=== PATIENT | male | born 1950 | race Caucasian/White ===

== ENCOUNTER 2016-10-28 20:45 | Inpatient (IN) | payer OTHER ==
[~2016-10-28] VITALS: Ht 162.6 cm; Wt 84.1 kg
--- NOTE | ~2016-10-28 | O ---
[facility] [place] [address] [address] OPERATIVE REPORT Name: SKIP PLUMMER Room #: 213-P ADM IN M.R.#: [id number] Admission: 10/28/16 Attend Phys: Robin Gallegos MD Discharge: Date of : 46 Report #: [id number] THIS REPORT FOR: //name// CC: Susana Su Robin Gallegos DATE OF SERVICE: 11/01/2016 PREOPERATIVE DIAGNOSIS: Coronary artery disease. POSTOPERATIVE DIAGNOSIS: Coronary artery disease. OPERATION: Coronary artery bypass x 4 including left internal mammary artery to left anterior descending artery, saphenous vein to diagonal and marginal arteries and saphenous vein to distal right coronary artery and endoscopic harvest, left greater saphenous vein. SURGEON: Jeffy Aviles MD. COMMUNICATIONS EQUIPMENT INSTALLER: Josefina Huynh. ANESTHESIA: General. INDICATIONS: The patient is a 66-year-old seen for Dr. El. The patient has unstable angina. Catheterization demonstrates a total occlusion of the right coronary and LAD and high-grade circumflex disease. Left ventricular function is satisfactory. FINDINGS AND TECHNIQUE: After general anesthesia was established, saphenous vein was harvested using an endoscopic approach and prepared to use as a conduit. Exposure was obtained through median sternotomy. Left internal mammary artery was harvested from chest wall. Pericardial well was made. Cannulation sutures were placed. Heparin was given. Aorta was cannulated. Right atrium was cannulated. Cardioplegia needle was positioned in the aortic root. Retrograde cardioplegic catheter was placed in coronary sinus. Cardiopulmonary bypass was established. The aorta was cross clamped. Antegrade and retrograde cardioplegia were given. Ice was poured in the pericardial well. The heart was stopped. During electromechanical arrest, the distal anastomoses were performed. An end-to-side anastomosis was made between vein and the right coronary artery at the crux. The right coronary itself was highly calcified, and the vessel at the point of anastomosis was approximately 1.3 mm. Cold cardioplegia was given. A separate segment of vein was sewn in end-to-side fashion to the large marginal. [facility] [address] [place] [address] OPERATIVE REPORT Name: SKIP PLUMMER Room #: 213-P [facility] IN M.R.#: [id number] Admission: 10/28/16 Attend Phys: Robin Gallegos MD Discharge: Date of : 46 Report #: [id number] This was a 1.6 mm vessel. That was more distal marginal, but I thought it was too small for bypass. Cold cardioplegia was given. Same segment of vein was sewn in [id number] fashion to the diagonal artery. This was a 1.3 mm vessel and was itself highly calcified. Cold cardioplegia was given. Left internal mammary artery was sewn in end-to-side fashion to left anterior descending artery. Patency of this vessel was checked with the temperature technique. The LAD was a 1.6 mm vessel. Cold cardioplegia was given. Two proximal anastomoses were performed. When these were complete, warm retrograde cardioplegia was given followed by warm continuous blood to the coronary sinus. When this infusion was complete, the crossclamp was removed, de-airing maneuvers were performed. The anastomoses were inspected and found to be satisfactory. As the patient warmed, nice cardiac activity resumed, chest tubes and pacing wires were placed. A marker was placed around the proximal anastomoses. When the patient was warmed, he was weaned from cardiopulmonary bypass. Venous cannula was removed. Protamine was given, the aortic cannula was removed. Flows were measured in the bypass grafts. Flow in the graft to the right side was 35 mL per minute. Flow in the graft to the left side was 90 mL per minute. A good Doppler signal was audible in the internal mammary artery. Total cross clamp time was 95 minutes, total pump time was 116 minutes. When hemostasis was satisfactory, chest was irrigated with antibiotic solution and closed in the usual fashion. The patient was taken to the intensive care unit in good condition having tolerated the procedure well. All counts reported as correct. By: 1945 16 Jeffy Aviles MD /nt
--- NOTE | ~2016-10-28 | HC ---
[facility] [address] [place] [address] CONSULTATION Name: SKIP PLUMMER Room #: 213-P ADM IN M.R.#: [id number] Admission: 10/28/16 Attend Phys: Robin Gallegos MD Discharge: Date of : 46 Report #: [id number] THIS REPORT FOR: //name// CC: Susana Sharlene Robin Gallegos DATE OF SERVICE: 10/29/2016 PATIENT IDENTIFICATION: This 66-year-old male has his first [facility] hospitalization. He usually receives his care at the [facility]. HISTORY OF PRESENT ILLNESS: The patient was in his usual state of good health when he developed the acute onset of chest discomfort radiating to his left arm. This was unusual and he had never experienced this kind of pain before. He does have chronic pains related primarily to rotator cuff injuries. He had no associated shortness of breath or diaphoresis. EMS was called and he received nitroglycerin with improvement in his discomfort. He was brought to the Emergency Room for further evaluation and treatment. The patient has no known history of myocardial infarction or coronary artery disease. MEDICATIONS ON ADMISSION: Include acetaminophen, guaifenesin, docusate, Cymbalta, fish oil, lisinopril 40 mg daily, Remeron 30 mg daily, Lyrica 200 mg b.i.d., Imitrex 25 mg p.r.n. migraine, tamsulosin 0.4 mg daily, albuterol, allopurinol, amlodipine 2.5 mg daily, vitamin C, baclofen, capsaicin, Zyrtec, Colcrys, Voltaren gel cream. PAST MEDICAL HISTORY: Otherwise remarkable for longstanding hypertension. He has known chronic mood disorder. ALLERGIES: He has reported allergies to AMOXICILLIN, ATORVASTATIN, CIPROFLOXACIN, PRAVASTATIN, ROSUVASTATIN, and SULFA. PERSONAL AND SOCIAL HISTORY: The patient does not smoke tobacco, but uses marijuana on a regular basis. He uses alcohol as well. FAMILY HISTORY: Negative for renal disease. REVIEW OF SYSTEMS: Remarkable for the absence of pedal edema. He denies skin rash. He denies headache, epistaxis, nausea, vomiting, diarrhea or constipation. PHYSICAL EXAMINATION: GENERAL: Reveals a well-developed, well-nourished male appearing his stated age, in no acute distress. VITAL SIGNS: Blood pressure 143/72, temperature 98.1, pulse 71, respirations 20. [address] [address] CONSULTATION Name: SKIP PLUMMER Room #: 213-P [facility] IN [facility].#: [id number] Admission: 10/28/16 Attend Phys: Robin Gallegos MD Discharge: Date of : 46 Report #: [id number] SKIN: Warm and dry without rash or erythema. There is no gross clubbing, cyanosis, edema or adenopathy. HEENT: The head is normocephalic and atraumatic. The sclerae are white. The pharynx is benign. NECK: Supple. There is no JVD present. LUNGS: Reveals scattered rhonchi without wheezes or crackles heard. CARDIOVASCULAR: Reveals a regular rate and rhythm without rub. ABDOMEN: Soft and nontender, without palpable mass or organomegaly. NEUROLOGIC: Reveals the patient to be alert and cooperative with a nonfocal exam. LABORATORY STUDIES: Available at the time of consultation include sodium 142, potassium 4.6, chloride 107, CO2 26, BUN 25, creatinine 1.8, glucose 99, calcium 8.5. White blood cell count 7600, hemoglobin 11.1, hematocrit 31.4, platelet count 174,000. There is no urinalysis available at the time of this dictation. ASSESSMENT: 1. Chronic kidney disease in the setting of diffuse atherosclerosis. 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 He is on appropriate manage with an NIRAV inhibitor. At this time, we will discontinue his NIRAV inhibitor in anticipation of cardiac catheterization to further evaluate his complaints of chest pain and elevated troponin. 2. Gentle hydration with bicarbonate containing IV fluids. 3. Longstanding hypertension. 4. Ongoing marijuana abuse. PLAN: As described above. Please see orders. <ELECTRONICALLY SIGNED> By: Gómez Wolfe MD 11/05/16 1001 0600 0743 Gómez Wolfe MD /nt
--- NOTE | ~2016-10-28 | EKG ---
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
--- NOTE | ~2016-10-28 | 2DMMODE ---
[facility] [address] [place] [address] 2 D/M-MODE ECHOCARDIOGRAM Name: KAVITHASKIP Room #: 217-P ADM IN M.R.#: [id number] Admission: 10/28/16 Attend Phys: Ania Waller Discharge: Date of : 46 Date of Service: 10/30/16 1004 Report #: [id number] THIS REPORT FOR: //name// APPROVED REPORT Study performed: 10/30/2016 07:21:10 EXAM: Comprehensive 2D, Doppler, and color-flow Echocardiogram Patient Location: Bedside Room #: 217 Blood Pressure: 124/61 mmHg HR: 60 bpm Rhythm: NSR Other Information Study Quality: FairAdequate Indications NSTEMI, Pre-Op CABG. Hx: HTN 2D Dimensions RVDd: 32.52 mm LVEF(%): 71.47 (>50%) IVSd: 10.28 (7-11mm) LVOT Diam: 22.20 (18-24mm) LVDd: 46.91 mm PWd: 10.05 (7-11mm) Ascending Ao: 34.60 (22-36mm) LVDs: 27.82 (25-40mm) Aortic Root: 34.94 mm Leach's LVEF: 71.47 % Volumes Left Atrial Volume (Systole) Single Plane 4CH: 44.43 mL Single Plane 2CH: 51.06 mL LA ESV Index: 27.00 mL/m2 Aortic Valve AoV Peak Tony.: 1.67 m/s AO Peak Gr.: 11.12 mmHg LVOT Max P.36 mmHg LVOT Max V: 1.26 m/s Mitral Valve E/A Ratio: 0.8 MV Decel. Time: 300.25 ms [facility] [address] [place] [address] 2 D/M-MODE ECHOCARDIOGRAM Name: PLUMMERSKIP Room #: 217-P [facility] IN [facility].#: [id number] Admission: 10/28/16 Attend Phys: Ania Waller Discharge: Date of : 46 Date of Service: 10/30/16 1004 Report #: [id number] MV E Max Tony.: 0.83 m/s MV A Tony.: 1.09 m/s MV PHT: 87.07 ms Pulmonary Valve PV Peak Tony.: 1.05 m/s PV Peak Gr.: 4.43 mmHg Pulmonary Vein P Vein S: 73.3 m/s P Vein D: 64.4 m/s Tricuspid Valve TR Peak Tony.: 2.29 m/s RAP Estimate: 5.00 mmHg TR Peak Gr.: 20.94 mmHg RVSP: 26.00 mmHg Left Ventricle The left ventricle is normal size. There is normal LV segmental wall motion. There is normal left ventricular wall thickness. Left ventricular systolic function is normal. LVEF is 60%. Grade I - abnormal relaxation pattern. Right Ventricle The right ventricle is normal size. The right ventricular systolic function is normal. Atria The left atrium size is normal. The right atrium size is normal. Aortic Valve The Aortic valve is moderately sclerotic. No aortic regurgitation is present. There is no aortic valvular stenosis. Mitral Valve Mitral valve leaflets are mildly thickened. Mild mitral annular calcification. Mild mitral regurgitation. Tricuspid Valve The tricuspid valve is normal in structure. There is trace tricuspid regurgitation. The right atrial pressure is estimated at 5 mmHg. Estimated PAP is 26mmHg. Pulmonic Valve The pulmonary valve is normal in structure. Mild pulmonic regurgitation. [facility] [address] [place] [address] 2 D/M-MODE ECHOCARDIOGRAM Name: SKIP PLUMMER Room #: 217-P [facility] IN ..#: [id number] Admission: 10/28/16 Attend Phys: Ania Waller Discharge: Date of : 46 Date of Service: 10/30/16 1004 Report #: [id number] Great Vessels The aortic root is normal in size. The ascending aorta is normal in size. IVC is normal in size and collapses >50% with inspiration. Pericardium There is no pericardial effusion. <Conclusion> The left ventricle is normal size. LVEF is 60%. The Aortic valve is moderately sclerotic. Mitral valve leaflets are mildly thickened. Mild mitral annular calcification. Mild mitral regurgitation. The tricuspid valve is normal in structure. There is trace tricuspid regurgitation. The right atrial pressure is estimated at 5 mmHg. Estimated PAP is 26mmHg. Mild pulmonic regurgitation. <ELECTRONICALLY SIGNED> By: Codey Juarez MD 10/30/16 1004 1004 1004 Codey Juarez MD /INF
--- NOTE | ~2016-10-28 | HC ---
[facility] [address] [address] CONSULTATION Name: SKIP PLUMMER Room #: 247-P [facility] IN M.R.#: [id number] Admission: 10/28/16 Attend Phys: Robin Gallegos MD Discharge: Date of : 46 Report #: [id number] THIS REPORT FOR: //name// CC: Susana Su Robin Gallegos DATE OF SERVICE: 10/29/2016 We were asked to see the patient by Dr. El. HISTORY OF PRESENT ILLNESS: The patient is a 66-year-old with coronary artery disease. The patient was admitted with acute onset of chest pain on the . The patient has a history of occasional chest pain prior to that, but the pain that brought him in to the hospital was significantly different. The patient reports he has chronic left shoulder pain with rotated cuff problem, but now describes a new type of shoulder pain in addition to having the mid sternal chest discomfort that he rates a 2/10. No other radiation. Some shortness of breath associated with it. No diaphoresis. No nausea or vomiting. Pain seemed to get better after coming to the hospital and receiving treatment. PAST MEDICAL HISTORY: Past history significant for hypertension. The patient denies diabetes mellitus. He is typically treated at the [facility]. MEDICATIONS: At home, acetaminophen, guaifenesin, docusate, Cymbalta, fish oil, Zestril, Remeron, Lyrica, Imitrex for migraines, tamsulosin, albuterol, allopurinol, amlodipine, baclofen, vitamin C and capsaicin for neuropathy. ALLERGIES: AMOXICILLIN, ATORVASTATIN, CIPROFLOXACIN, POLLEN, PRAVASTATIN, ROSUVASTATIN and SULFA. SOCIAL HISTORY: The patient lives at home with his son. The patient is on full disability. Denies tobacco use. Does use marijuana. Denies problems with Hep C or HIV. REVIEW OF SYSTEMS: CONSTITUTIONAL: Negative for fever or chills. EYES: Negative for eye pain or visual change. Wears glasses. HENT: Negative for rhinorrhea or sore throat. RESPIRATORY: Negative for cough or shortness of breath. CARDIAC: As mentioned, chest pain. No palpitations. GASTROINTESTINAL: No nausea, vomiting or diarrhea. Does have large incisional hernia, but no obstructive symptoms. GENITOURINARY: No burning, urgency or frequency. MUSCULOSKELETAL: Left shoulder pain, scheduled for rotator cuff surgery. SKIN: No rash or infection. NEUROLOGIC: No numbness or tingling. Does have neuropathy in [facility] [address] [place] [address] CONSULTATION Name: SKIP PLUMMER Room #: 247-P [facility]#: [id number] Admission: 10/28/16 Attend Phys: Robin Gallegos MD Discharge: Date of : 46 Report #: [id number] extremities. PHYSICAL EXAMINATION: VITAL SIGNS: Temperature 36.7, heart rate 58, respiratory rate 16, blood pressure 133/64 and pulse ox 96. HEENT: No scleral icterus. Pupils are round and equal. Gaze conjugate. NECK: No lymphadenopathy, no bruit. CHEST: Clear. HEART: Rhythm regular. ABDOMEN: We note large incisional hernia in the upper abdomen. No mass, no tenderness. SKIN: No rash or infection. EXTREMITIES: No clubbing, cyanosis or edema; 2+ distal pulses. NEUROLOGIC: No motor or sensory dysfunction. MUSCULOSKELETAL: No bone or joint dyssymmetry or deformity. PSYCHIATRIC: Shows insight into problems. He is a pleasant fellow, oriented and appropriate. ASSESSMENT: The patient has important 3-vessel coronary disease. Cardiac catheterization demonstrated total occlusion of the left anterior descending, total occlusion of the right with collateral filling from [id number] of the left anterior descending and from [id number] of the distal right system. There is also high-grade circumflex disease. Left ventricular function not significantly impaired. I reviewed the cardiac catheterization with the patient. I have recommended coronary artery bypass surgery because of the nature of and severity of the blockages. Risks and details were discussed. The patient understands all of this and he wishes to proceed. We will try to arrange surgery for . Thank you for the consult. <ELECTRONICALLY SIGNED> By: Jeffy Aviles MD 11/02/16 1117 0905 1111 Jeffy Aviles MD /nt
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
--- NOTE | ~2016-10-28 | CATHLAB ---
[facility] [address] [place] [address] INVASIVE PROCEDURE REPORT Name: SKIP PLUMMER Tr Room #: 217-P ADM IN M.R.#: [id number] Admission: 10/28/16 Attend Phys: Ania Waller Discharge: Date of : 46 Date of Service: 10/29/16 1456 Report #: [id number] THIS REPORT FOR: //name// CC: Susana Sharlene Robin Gallegos PROCEDURE: Left heart coronary angiography. INDICATIONS: Non-Q-wave myocardial infarction. DESCRIPTION OF PROCEDURE: The potential benefits and risks of the procedure were discussed at length with the patient who understood. Full written and informed consent was obtained. The patient was brought into the catheterization suite where his right groin was prepped and draped in a sterile fashion. He was sedated with intravenous Versed. A 1% Xylocaine was used as local anesthetic. A 6-Armenian sheath was placed in the right femoral artery by the modified Seldinger technique. Left heart catheterization was performed with a 6-Armenian angled pigtail catheter. A single plain ventriculogram was performed in the MCKEON view. Pullback gradients were measured across the aortic valve. Selective coronary angiography was performed with a 6-Armenian left and right 4 cm John coronary catheter. All diagnostic catheters removed. Hand injection was performed through the right groin sheath with placement of a Mynx device. Upon removal of the sheath, the patient remained in excellent condition at the conclusion of the procedure with good right groin hemostasis and intact distal pulses. RESULTS: LEFT HEART HEMODYNAMICS: 1. Left ventricular systolic pressure of 140. 2. Left ventricular end diastolic pressure of 12. 3. Aortic valve, no gradient was present on pullback across the aortic valve, central aortic pressure of 140/70. ANGIOGRAPHY: Left ventriculogram: Ventriculography demonstrated normal global and regional left ventricular systolic function. The proximal coronary vasculature was densely calcified before any injection of these vessels. SELECTIVE CORONARY ANGIOGRAPHY: 1. Left main: Left main exhibited a 60% densely calcified distal stenosis. 2. Left anterior descending: Left anterior descending was occluded proximally. There was a tubular 60-70% proximal LAD stenosis before its occlusion. 3. Circumflex: The circumflex exhibited a 99% ostial stenosis. The midcircumflex was occluded and a distally arising marginal branch filled by left to left collaterals. There were fairly extensive right to left collaterals filling most of the LAD, which appeared to be a decent sized vessel. 4. Right coronary artery: The right coronary artery was occluded proximally. [facility] [address] [place] [address] INVASIVE PROCEDURE REPORT Name: SKIP PLUMMER Room #: 217-P [facility] IN ..#: [id number] Admission: 10/28/16 Attend Phys: Ania Waller Discharge: Date of : 46 Date of Service: 10/29/16 1456 Report #: [id number] There were faint bridging collaterals to a thready distal right coronary. There were extensive collaterals via acute marginal branches to the LAD which was a large vessel that wrapped around the inferior apex. SUMMARY: 1. Normal global and regional left ventricular systolic function. Ejection fraction was estimated at 60%. 2. Very severe multivessel coronary disease as detailed above. Surgical revascularization is recommended. By: 1456 0644 Cody El MD, FACC /nt
--- NOTE | ~2016-10-28 | EKG ---
[place] [address] [facility] [place] [address] ELECTROCARDIOGRAM REPORT Name: SKIP PLUMMER Room #: 213-[facility] IN M.R.#: [id number] Admission: 10/28/16 Attend Phys: Robin Gallegos MD Discharge: 11/05/16 Date of : 48 Report #: [id number] THIS REPORT FOR: //name// [facility] Test Date: 2016-11-05 Test Time: 12:42:48 Pat Name: SKIP PLUMMER Department: Room: 213 P Gender: M Machine Sign Writer: Ramez HASTINGS : 1950 Requested By: Jeffy Aviles Order Number: [id number] MD: Cody El Measurements Intervals [place] Rate: 65 P: 47 GA: 148 QRS: -15 QRSD: 130 T: -1 QT: 421 QTc: 438 Interpretive Statements Sinus rhythm Right bundle branch block Compared to ECG 11/02/2016 07:15:01 No significant change was found Electronically Signed On 11-06-2016 7:54:46 CDT by Cody El [email or web address] <ELECTRONICALLY SIGNED> By: Cody El MD, [facility] 11/06/16 0754 1242 124 Cody El MD, [facility] /EPI
--- NOTE | ~2016-10-28 | EKG ---
[place] [address] [facility] [place] [address] ELECTROCARDIOGRAM REPORT Name: SKIP PLUMMER Room #: 247-P ADM IN M.R.#: [id number] Admission: 10/28/16 Attend Phys: Robin Gallegos MD Discharge: Date of : 48 Report #: [id number] THIS REPORT FOR: //name// [facility] Test Date: 2016-11-02 Test Time: 07:15:01 Pat Name: SKIP PLUMMER Department: Room: 247 P Gender: M Printing Sales Representative: wilma : 1950 Requested By: Jeffy Aviles Order Number: [id number] MD: Cody El Measurements Intervals [place] Rate: 74 P: 33 MA: 149 QRS: 5 QRSD: 138 T: -14 QT: 388 QTc: 431 Interpretive Statements Sinus rhythm Right bundle branch block Baseline wander in lead(s) V4 Compared to ECG 10/29/2016 17:35:04 right bundle branch block is now present Electronically Signed On 11-03-2016 12:45:16 CDT by Cody El [email or web address] <ELECTRONICALLY SIGNED> By: Cody El MD, [facility] 11/03/16 1245 4 Cody lE MD, [facility] /EPI
--- NOTE | ~2016-10-28 | EKG ---
[place] [address] [facility] [place] [address] ELECTROCARDIOGRAM REPORT Name: SKIP PLUMMER Room #: 217-P ADM IN M.R.#: [id number] Admission: 10/28/16 Attend Phys: Robin Gallegos MD Discharge: Date of : 48 Report #: [id number] THIS REPORT FOR: //name// [facility] Test Date: 2016-10-29 Test Time: 00:07:10 Pat Name: SKIP PLUMMER Department: Room: 217 P Gender: M Visual Merchandising Director: yazmin : 1950 Requested By: Yady Moffett Order Number: [id number] MD: Cody El Measurements Intervals [place] Rate: 64 P: 20 AK: 155 QRS: -8 QRSD: 80 T: -3 QT: 365 QTc: 377 Interpretive Statements Sinus rhythm Borderline T abnormalities, inferior leads Baseline wander in lead(s) V4 No previous ECG available for comparison Electronically Signed On 10-29-2016 9:04:23 CDT by Cody El [email or web address] <ELECTRONICALLY SIGNED> By: Cody El MD, [facility] 10/29/16 0904 Cody El MD, FACC /EPI
--- NOTE | ~2016-10-28 | EKG ---
[place] [address] [facility] [place] [address] ELECTROCARDIOGRAM REPORT Name: SKIP PLUMMER Room #: 217-P ADM IN M.R.#: [id number] Admission: 10/28/16 Attend Phys: Robin Gallegos MD Discharge: Date of : 48 Report #: [id number] THIS REPORT FOR: //name// [facility] Test Date: 2016-10-29 Test Time: 17:35:04 Pat Name: SKIP PLUMMER Department: Room: 217 P Gender: M Unix Developer: Ania CURRIE : 1950 Requested By: Jeffy Aviles Order Number: [id number] MD: Cody El Measurements Intervals [place] Rate: 56 P: 33 CT: 165 QRS: 0 QRSD: 82 T: -2 QT: 392 QTc: 379 Interpretive Statements Sinus bradycardia Borderline T abnormalities, inferior leads Compared to ECG 10/29/2016 00:07:10 No significant changes Electronically Signed On 10-30-2016 8:35:31 CDT by Cody El [email or web address] <ELECTRONICALLY SIGNED> By: Cody El MD, [facility] 10/30/16 0835 1735 173 Cody El MD, [facility] /EPI
[2016-10-28 20:45] VITALS: BP 120/68
[2016-10-28 21:06] LABS: ABSOLUTE NEUTROPHILS 4.8 thou/uL (1.4-8.2); BASOPHILS 0.4 % (0.0-2.0); EOSINOPHILS 8.4 % (0.0-3.0); HEMATOCRIT 31.4 % (42.0-52.0); HEMOGLOBIN 11.1 gm/dL (14.0-18.0); LYMPHOCYTES 20.7 % (24.0-44.0); MCH 33.4 pg (26.0-34.0); MCHC 35.3 g/dL (28.0-37.0); MCV 94.5 fL (80.0-100.0); MONOCYTES 6.9 % (1.0-8.0); PLATELET COUNT 174 thou/uL (150-400); POLYS 63.6 % (36.0-66.0); RBC 3.32 mil/uL (4.50-6.00); RDW 14.4 % (10.5-14.5); WBC 7.6 thou/uL (4.0-11.0)
[2016-10-28 21:07] LABS: MANUAL DIFF NO
[2016-10-28] MEDS ORDERED: TYLENOL325 MG PO (21:08)
[2016-10-28] MEDS ORDERED: PROAIR RESPICL90 MCG INH (21:10)
[2016-10-28] MEDS ORDERED: ALLOPURINOL 30300 M2 PO (21:10)
[2016-10-28] MEDS ORDERED: VITAMINC500 PO (21:11)
[2016-10-28] MEDS ORDERED: NORVASC 2.5 MG2.5 M1 PO (21:11)
[2016-10-28] MEDS ORDERED: LIORESAL 10 MG10 MG PO (21:12)
[2016-10-28] MEDS ORDERED: CAPSAICIN42.5 GM (21:15)
[2016-10-28] MEDS ORDERED: CETIRIZINE HCL5 MG PO (21:15)
[2016-10-28] MEDS ORDERED: VOLTAREN GEL 1100 G2 (21:16)
[2016-10-28] MEDS ORDERED: COLCHICINE0.6 MG PO (21:16)
[2016-10-28 21:30] LABS: TROPONIN-I 0.1 ng/mL (<0.04-0.07)
[2016-10-28 21:34] LABS: CREATININE 2.1 mg/dL (0.7-1.3); POTASSIUM 4.5 mmol/L (3.5-5.1)
[2016-10-28 21:46] LABS: ALBUMIN 1.9 g/dL (3.4-5.0); CALCIUM 8.5 mg/dL (8.5-10.1); TOTAL BILIRUBIN 0.2 mg/dL (<0.1-1.0); TOTAL PROTEIN 6.2 g/dL (6.4-8.2)
[2016-10-28 22:22] VITALS: BP 107/58
[2016-10-28 23:07] VITALS: BP 119/61
[2016-10-28] MEDS ORDERED: COUGH SYRU100 MG/5 M PO (23:28)
[2016-10-28] MEDS ORDERED: COL-RITE50 MG PO (23:31)
[2016-10-28] MEDS ORDERED: CYMBALTA30 MG PO (23:34)
[2016-10-28] MEDS ORDERED: FISH OIL 1,001000 M2 PO (23:35)
[2016-10-28] MEDS ORDERED: BASLE60 GM TOP (23:37)
[2016-10-28] MEDS ORDERED: ZESTRIL40 MG PO (23:38)
[2016-10-28] MEDS ORDERED: REMERON 30 MG T30 M1 PO (23:40)
[2016-10-28] MEDS ORDERED: LYRICA200 MG PO (23:41)
[2016-10-28] MEDS ORDERED: IMITREX 25 MG T25 MG PO (23:42)
[2016-10-28] MEDS ORDERED: TAMSULOSIN HCL0.4 MG PO (23:43)
[2016-10-28] MEDS ORDERED: BENADRYL25 MG PO (23:44)
[2016-10-28] MEDS ORDERED: DECONGESTANT NA15 ML NASAL (23:46)
[2016-10-29 03:15] LABS: CHOLESTEROL 236 mg/dL (<200); HDL CHOLESTEROL 28 mg/dL (>40); LDL CHOLESTEROL 143 mg/dL (<100); SERUM ASSESSMENT Clear; TC:HDL 8.4 Ratio (Not establshd); TRIGLYCERIDE 326 mg/dL (<150); VLDL 65 mg/dL (<40)
[2016-10-29 03:18] LABS: CALCIUM 8.5 mg/dL (8.5-10.1); CREATININE 1.8 mg/dL (0.7-1.3); POTASSIUM 4.6 mmol/L (3.5-5.1); TROPONIN-I 0.35 ng/mL (<0.04-0.07)
[2016-10-29 05:14] VITALS: BP 126/67
[2016-10-29 07:16] VITALS: BP 139/71
[2016-10-29 11:04] VITALS: BP 143/72
[2016-10-29 18:16] LABS: APTT 28.5 Seconds (24.5-32.8); PROTIME 10.4 Seconds (9.3-11.4)
[2016-10-29 20:15] VITALS: BP 114/62
[2016-10-30 00:35] VITALS: BP 113/52
[2016-10-30 03:07] LABS: GLYCOHEMOGLOBIN (HGB A1C) 4.9 % (4.8-5.6)
[2016-10-30 03:16] LABS: HEMATOCRIT 30.5 % (42.0-52.0); HEMOGLOBIN 10.3 gm/dL (14.0-18.0); MCH 32.2 pg (26.0-34.0); MCHC 33.7 g/dL (28.0-37.0); MCV 95.6 fL (80.0-100.0); RBC 3.19 mil/uL (4.50-6.00); RDW 14.5 % (10.5-14.5); WBC 7.9 thou/uL (4.0-11.0)
[2016-10-30 03:29] LABS: URINE BILIRUBIN NEGATIVE (Negative); URINE BLOOD NEGATIVE (Negative); URINE COLOR YELLOW; URINE GLUCOSE-RANDOM* NEGATIVE (Negative); URINE KETONES NEGATIVE (Negative); URINE LEUKOCYTES-REFLEX NEGATIVE (Negative); URINE PROTEIN (DIPSTICK) NEGATIVE (Negative); URINE SPECIFIC GRAVITY <= 1.005 (1.003-1.035); URINE UROBILINOGEN 0.2 E.U./dl (0.2-1.0)
[2016-10-30 03:30] LABS: ALBUMIN 2.9 g/dL (3.4-5.0); CALCIUM 8.1 mg/dL (8.5-10.1); CREATININE 1.5 mg/dL (0.7-1.3); MAGNESIUM 1.1 mg/dL (1.8-2.4); PHOSPHORUS 3.3 mg/dL (2.5-4.9)
[2016-10-30 04:12] VITALS: BP 124/61
[2016-10-30 07:20] VITALS: BP 133/64
[2016-10-30 11:05] LABS: URINE CREATININE-RANDOM* 54.4 mg/dL (Not Estab.)
[2016-10-30 11:15] VITALS: BP 121/64
[2016-10-30 13:58] LABS: URINE PROTEIN-RANDOM* 4.7 mg/dL (Not Estab.)
[2016-10-30 16:30] VITALS: BP 107/55
[2016-10-30 20:10] VITALS: BP 142/84
[2016-10-31 04:02] LABS: ALBUMIN 3.1 g/dL (3.4-5.0); CREATININE 1.3 mg/dL (0.7-1.3); MAGNESIUM 1.8 mg/dL (1.8-2.4); PHOSPHORUS 4.3 mg/dL (2.5-4.9)
[2016-10-31 04:18] VITALS: BP 150/82
[2016-10-31 07:50] VITALS: BP 135/74
[2016-10-31 11:55] VITALS: BP 123/61
[2016-10-31 15:10] VITALS: BP 112/54
[2016-10-31 19:39] VITALS: BP 115/58
[2016-11-01] VITALS (12 sets, daily range): BP systolic 90–181; BP diastolic 57–91
[2016-11-01 04:00] LABS: ALBUMIN 3.3 g/dL (3.4-5.0); CALCIUM 8.3 mg/dL (8.5-10.1); CREATININE 1.4 mg/dL (0.7-1.3); PHOSPHORUS 3.8 mg/dL (2.5-4.9); POTASSIUM 4.2 mmol/L (3.5-5.1)
[2016-11-01 08:08] LABS: KAPPA FREE LIGHT CHAINS 18.44 mg/L (3.30-19.40); LAMBDA FREE LIGHT CHAINS 15.35 mg/L (5.71-26.30)
[2016-11-01 14:26] LABS: POC BE -2 mmol/L (-2.0 to +3.0); POC CA IONIZED 4.2 mg/dL (4.5-5.3); POC FiO2 100 %; POC GLUCOSE 131 mg/dL (70-99); POC HCO3 23.9 mmol/L (22.0-26.0); POC HEMOGLOBIN 8.5 g/dL (14.0-18.0); POC SODIUM 137 mmol/L (136-145); POC pCO2 43.1 mmHg (35.0-45.0); POC pH 7.352 (7.360-7.450)
[2016-11-01 14:26] LABS: POC BE 2 mmol/L (-2.0 to +3.0); POC CA IONIZED 4.6 mg/dL (4.5-5.3); POC FiO2 100 %; POC GLUCOSE 120 mg/dL (70-99); POC HEMOGLOBIN 9.5 g/dL (14.0-18.0); POC POTASSIUM 4.2 mmol/L (3.5-5.1); POC SODIUM 139 mmol/L (136-145); POC pCO2 44.5 mmHg (35.0-45.0); POC pH 7.392 (7.360-7.450)
[2016-11-01 14:26] LABS: POC BE 3 mmol/L (-2.0 to +3.0); POC CA IONIZED 4.1 mg/dL (4.5-5.3); POC FiO2 100 %; POC GLUCOSE 137 mg/dL (70-99); POC HCO3 27.5 mmol/L (22.0-26.0); POC HEMOGLOBIN 7.8 g/dL (14.0-18.0); POC POTASSIUM 4.1 mmol/L (3.5-5.1); POC SODIUM 136 mmol/L (136-145); POC pCO2 44.6 mmHg (35.0-45.0); POC pH 7.397 (7.360-7.450)
[2016-11-01 14:26] LABS: POC BE 4 mmol/L (-2.0 to +3.0); POC CA IONIZED 4.6 mg/dL (4.5-5.3); POC FiO2 100 %; POC GLUCOSE 89 mg/dL (70-99); POC HCO3 28.1 mmol/L (22.0-26.0); POC HEMOGLOBIN 9.9 g/dL (14.0-18.0); POC POTASSIUM 4.3 mmol/L (3.5-5.1); POC SODIUM 140 mmol/L (136-145); POC pH 7.444 (7.360-7.450)
[2016-11-01 14:27] LABS: POC BE -3 mmol/L (-2.0 to +3.0); POC CA IONIZED 5.2 mg/dL (4.5-5.3); POC FiO2 100 %; POC GLUCOSE 161 mg/dL (70-99); POC HEMOGLOBIN 6.8 g/dL (14.0-18.0); POC POTASSIUM 4.2 mmol/L (3.5-5.1); POC SODIUM 134 mmol/L (136-145); POC pCO2 41.8 mmHg (35.0-45.0); POC pH 7.349 (7.360-7.450)
[2016-11-01 14:27] LABS: POC BE 1 mmol/L (-2.0 to +3.0); POC CA IONIZED 4.2 mg/dL (4.5-5.3); POC FiO2 100 %; POC GLUCOSE 149 mg/dL (70-99); POC HEMOGLOBIN 6.8 g/dL (14.0-18.0); POC POTASSIUM 4.4 mmol/L (3.5-5.1); POC SODIUM 135 mmol/L (136-145); POC pCO2 45.5 mmHg (35.0-45.0); POC pH 7.366 (7.360-7.450)
[2016-11-01 14:27] LABS: POC BE -4 mmol/L (-2.0 to +3.0); POC CA IONIZED 4.9 mg/dL (4.5-5.3); POC FiO2 100 %; POC GLUCOSE 134 mg/dL (70-99); POC HCO3 22.2 mmol/L (22.0-26.0); POC HEMOGLOBIN 7.5 g/dL (14.0-18.0); POC POTASSIUM 4.4 mmol/L (3.5-5.1); POC SODIUM 137 mmol/L (136-145); POC pCO2 42.8 mmHg (35.0-45.0); POC pH 7.323 (7.360-7.450)
[2016-11-01 14:27] LABS: POC BE 2 mmol/L (-2.0 to +3.0); POC CA IONIZED 4.2 mg/dL (4.5-5.3); POC FiO2 100 %; POC GLUCOSE 171 mg/dL (70-99); POC HCO3 27.4 mmol/L (22.0-26.0); POC HEMOGLOBIN 7.1 g/dL (14.0-18.0); POC POTASSIUM 4.6 mmol/L (3.5-5.1); POC SODIUM 135 mmol/L (136-145); POC pCO2 50.8 mmHg (35.0-45.0)
[2016-11-01 14:27] LABS: POC BE 2 mmol/L (-2.0 to +3.0); POC CA IONIZED 4.2 mg/dL (4.5-5.3); POC FiO2 100 %; POC GLUCOSE 146 mg/dL (70-99); POC HEMOGLOBIN 7.5 g/dL (14.0-18.0); POC POTASSIUM 4.2 mmol/L (3.5-5.1); POC SODIUM 135 mmol/L (136-145); POC pCO2 46.1 mmHg (35.0-45.0); POC pH 7.376 (7.360-7.450)
[2016-11-01 15:05] LABS: ABG SAMPLE TYPE ARTERIAL; HCO3 20.8 mmol/L (22.0-26.0); LACTATE 1.73 mmol/L (0.5-2.0); O2(CT) 10.2 mL/dL (15.0-23.0); O2Hb 93.9 % (92.0-98.0); PCO2 41.8 mmHg (35.0-45.0); PO2 92.3 mmHg (80.0-100.0); sO2 96.4 % (92.0-98.0)
[2016-11-01 15:06] LABS: STICK SITE LINE; TIDAL VOLUME 600 ml; pH 7.314 (7.360-7.450)
[2016-11-01 15:07] LABS: HEMATOCRIT 22.3 % (42.0-52.0); MCH 32.4 pg (26.0-34.0); MCHC 34.6 g/dL (28.0-37.0); MCV 93.7 fL (80.0-100.0); RBC 2.38 mil/uL (4.50-6.00); RDW 14.2 % (10.5-14.5); WBC 10.2 thou/uL (4.0-11.0)
[2016-11-01 15:08] LABS: c-ANCA <1:20 titer (Neg:<1:20); p-ANCA <1:20 titer (Neg:<1:20)
[2016-11-01 15:18] LABS: HEMOGLOBIN 7.7 gm/dL (14.0-18.0)
[2016-11-01 15:32] LABS: CALCIUM 7.8 mg/dL (8.5-10.1); CREATININE 1.4 mg/dL (0.7-1.3); POTASSIUM 4.6 mmol/L (3.5-5.1)
[2016-11-01 15:46] LABS: ABG SAMPLE TYPE ARTERIAL; BE(vivo) -4.8 mmol/L (-2 to +3); HCO3 20.1 mmol/L (22.0-26.0); LACTATE 1.59 mmol/L (0.5-2.0); O2(CT) 10.5 mL/dL (15.0-23.0); O2Hb 94.4 % (92.0-98.0); PCO2 36.2 mmHg (35.0-45.0); STICK SITE LINE; TIDAL VOLUME 600 ml; pH 7.363 (7.360-7.450); sO2 96.9 % (92.0-98.0); tCO2 21.2 mmol/L (24.0-30.0)
[2016-11-01 18:52] LABS: HEMATOCRIT 23.1 % (42.0-52.0); HEMOGLOBIN 7.9 gm/dL (14.0-18.0); MCH 32.1 pg (26.0-34.0); MCHC 34.5 g/dL (28.0-37.0); MCV 93.1 fL (80.0-100.0); RBC 2.48 mil/uL (4.50-6.00); RDW 14.5 % (10.5-14.5); WBC 13.8 thou/uL (4.0-11.0)
[2016-11-01 19:04] LABS: CALCIUM 8.1 mg/dL (8.5-10.1); CREATININE 1.4 mg/dL (0.7-1.3); POTASSIUM 4.6 mmol/L (3.5-5.1)
[2016-11-01 19:26] LABS: ABG SAMPLE TYPE ARTERIAL; BE(vivo) -4.3 mmol/L (-2 to +3); HCO3 21.7 mmol/L (22.0-26.0); LACTATE 1.39 mmol/L (0.5-2.0); O2(CT) 11.7 mL/dL (15.0-23.0); PCO2 43.9 mmHg (35.0-45.0); PO2 153.6 mmHg (80.0-100.0); Pressure Support 6 cm H20; STICK SITE LINE; pH 7.311 (7.360-7.450); sO2 98.8 % (92.0-98.0)
[2016-11-01 19:27] LABS: VDS CPAP 35MIN cc
[2016-11-01 20:53] LABS: ABG SAMPLE TYPE ARTERIAL; BE(vivo) -4.1 mmol/L (-2 to +3); Face Shield 50 %; HCO3 21.4 mmol/L (22.0-26.0); LACTATE 1.83 mmol/L (0.5-2.0); O2(CT) 11.6 mL/dL (15.0-23.0); O2Hb 96.6 % (92.0-98.0); PCO2 41.4 mmHg (35.0-45.0); PO2 130.6 mmHg (80.0-100.0); STICK SITE LINE; pH 7.332 (7.360-7.450); sO2 98.4 % (92.0-98.0); tCO2 22.7 mmol/L (24.0-30.0)
[2016-11-02 06:08] LABS: HEMATOCRIT 22.1 % (42.0-52.0); HEMOGLOBIN 7.5 gm/dL (14.0-18.0); MCH 32.3 pg (26.0-34.0); MCHC 33.8 g/dL (28.0-37.0); MCV 95.5 fL (80.0-100.0); RBC 2.31 mil/uL (4.50-6.00); RDW 14.5 % (10.5-14.5); WBC 12.1 thou/uL (4.0-11.0)
[2016-11-02 06:25] LABS: ALBUMIN 3.6 g/dL (3.4-5.0); CALCIUM 7.9 mg/dL (8.5-10.1); CREATININE 1.5 mg/dL (0.7-1.3); MAGNESIUM 2.2 mg/dL (1.8-2.4); PHOSPHORUS 5.4 mg/dL (2.5-4.9); POTASSIUM 4.5 mmol/L (3.5-5.1)
[2016-11-03] VITALS (8 sets, daily range): BP systolic 110–148; BP diastolic 58–75
[2016-11-03 03:10] LABS: HEMATOCRIT 21.2 % (42.0-52.0); MCH 31.7 pg (26.0-34.0); MCHC 32.8 g/dL (28.0-37.0); MCV 96.7 fL (80.0-100.0); RBC 2.2 mil/uL (4.50-6.00); RDW 14.6 % (10.5-14.5); WBC 14.8 thou/uL (4.0-11.0)
[2016-11-03 03:22] LABS: CALCIUM 8.3 mg/dL (8.5-10.1); CREATININE 1.8 mg/dL (0.7-1.3); POTASSIUM 4.3 mmol/L (3.5-5.1)
[2016-11-04] VITALS (7 sets, daily range): BP systolic 120–154; BP diastolic 64–81
[2016-11-04 02:23] LABS: MONOCYTES 10.1 % (1.0-8.0)
[2016-11-04 02:24] LABS: ABSOLUTE NEUTROPHILS 8.6 thou/uL (1.4-8.2); EOSINOPHILS 1.7 % (0.0-3.0); LYMPHOCYTES 10.9 % (24.0-44.0); MCH 32.1 pg (26.0-34.0); MCHC 33.9 g/dL (28.0-37.0); MCV 94.8 fL (80.0-100.0); PLATELET COUNT 96 thou/uL (150-400); POLYS 76.3 % (36.0-66.0); RBC 1.89 mil/uL (4.50-6.00); RDW 14.3 % (10.5-14.5); WBC 11.3 thou/uL (4.0-11.0)
[2016-11-04 02:27] LABS: MANUAL DIFF NO
[2016-11-04 02:30] LABS: HEMATOCRIT 17.9 % (42.0-52.0); HEMOGLOBIN 6.1 gm/dL (14.0-18.0)
[2016-11-04 02:37] LABS: CREATININE 1.5 mg/dL (0.7-1.3); POTASSIUM 4.2 mmol/L (3.5-5.1)
[2016-11-05 03:36] LABS: BASOPHILS 0.9 % (0.0-2.0); EOSINOPHILS 4.6 % (0.0-3.0); HEMATOCRIT 27.1 % (42.0-52.0); LYMPHOCYTES 15.2 % (24.0-44.0); MCHC 34.1 g/dL (28.0-37.0); MONOCYTES 11.4 % (1.0-8.0); PLATELET COUNT 119 thou/uL (150-400); POLYS 67.9 % (36.0-66.0); RBC 2.98 mil/uL (4.50-6.00); RDW 15.4 % (10.5-14.5); WBC 8.8 thou/uL (4.0-11.0)
[2016-11-05 03:37] LABS: HEMOGLOBIN 9.3 gm/dL (14.0-18.0)
[2016-11-05 03:38] LABS: MANUAL DIFF NO
[2016-11-05 03:47] LABS: ALBUMIN 3.1 g/dL (3.4-5.0); CALCIUM 8.1 mg/dL (8.5-10.1); CREATININE 1.4 mg/dL (0.7-1.3); PHOSPHORUS 2.6 mg/dL (2.5-4.9); POTASSIUM 3.5 mmol/L (3.5-5.1)
[2016-11-05 03:48] VITALS: BP 124/62
[2016-11-05 08:18] VITALS: BP 147/74
[2016-11-05 11:49] VITALS: BP 134/71
[2016-11-05 13:40] VITALS: BP 134/71
[2016-11-05 14:15] VITALS: BP 134/71
== END 2016-11-05 14:24 | disposition home or self-care (01) | DRG 233 ==
LOC: ER 20:45 → EROBS 21:57 → 2N 21:57 → TBA 11-01 08:46 → ICU 11-01 15:26 → 2N 11-03 21:15
PROVIDERS: Emergency Medicine; Hospitalist; Internal Medicine; Internal Medicine Endocrinology, Diabetes & Metabolism; Internal Medicine Nephrology; Nurse Practitioner Acute Care; Nurse Practitioner Gerontology; Surgery Vascular Surgery
PROC: B2111ZZ Fluoroscopy of Multiple Coronary Arteries using Low Osmolar Contrast (ICD-10-PCS; principal; 2016-10-29)
PROC: B2151ZZ Fluoroscopy of Left Heart using Low Osmolar Contrast (ICD-10-PCS; principal; 2016-10-29)
PROC: 4A023N7 Measurement of Cardiac Sampling and Pressure, Left Heart, Percutaneous Approach (ICD-10-PCS; principal; 2016-10-29)
PROC: 06BQ4ZZ Excision of Left Saphenous Vein, Percutaneous Endoscopic Approach (ICD-10-PCS; 2016-11-01)
PROC: 021209W Bypass Coronary Artery, Three Arteries from Aorta with Autologous Venous Tissue, Open Approach (ICD-10-PCS; 2016-11-01)
PROC: 5A1221Z Performance of Cardiac Output, Continuous (ICD-10-PCS; 2016-11-01)
PROC: 02100Z9 Bypass Coronary Artery, One Artery from Left Internal Mammary, Open Approach (ICD-10-PCS; 2016-11-01)
PROC: 30233N1 Transfusion of Nonautologous Red Blood Cells into Peripheral Vein, Percutaneous Approach (ICD-10-PCS; 2016-11-04)
DX: I21.4 Non-ST elevation (NSTEMI) myocardial infarction (principal); E43 Unspecified severe protein-calorie malnutrition; I25.10 Atherosclerotic heart disease of native coronary artery without angina pectoris; E83.42 Hypomagnesemia; I73.9 Peripheral vascular disease, unspecified; R73.9 Hyperglycemia, unspecified; D64.9 Anemia, unspecified; I12.9 Hypertensive chronic kidney disease with stage 1 through stage 4 chronic kidney disease, or unspecified chronic kidney disease; N18.3 Chronic kidney disease, stage 3 (moderate); G89.4 Chronic pain syndrome; M10.9 Gout, unspecified; I65.29 Occlusion and stenosis of unspecified carotid artery; K21.9 Gastro-esophageal reflux disease without esophagitis; F12.10 Cannabis abuse, uncomplicated; E78.5 Hyperlipidemia, unspecified; G43.909 Migraine, unspecified, not intractable, without status migrainosus; Z87.828 Personal history of other (healed) physical injury and trauma; Z79.899 Other long term (current) drug therapy; Z88.1 Allergy status to other antibiotic agents; Z88.2 Allergy status to sulfonamides; Z88.8 Allergy status to other drugs, medicaments and biological substances; Z91.048 Other nonmedicinal substance allergy status; Z82.49 Family history of ischemic heart disease and other diseases of the circulatory system
CPT/HCPCS: 10078; 10081; 47000; 47001; 47002; 47297; 48888; 50249; 50409; 50456; 50498; 50668; 51301; 52131; 53327; 53358; 54118; 56524; 56525; 56526; 56527; 56528; 56531; 56534; 56660; 56898; 57093; 62110; 62950; 64029; 65002; 65020; 65043; 65045; 65090

== ENCOUNTER 2017-10-28 16:46 | Inpatient (IN) | payer OTHER ==
[~2017-10-28] VITALS: Ht 162.6 cm; Wt 85.7 kg
--- NOTE | ~2017-10-28 | EKG ---
[address] [place] [address] ELECTROCARDIOGRAM REPORT Name: SKIP PLUMMER Room #: 430-P ADM IN M.R.#: [id number] Admission: 10/28/17 Attend Phys: Pipe Wills MD Discharge: Date of : 48 Report #: [id number] THIS REPORT FOR: //name// [facility] Test Date: 2017-10-28 Test Time: 17:16:59 Pat Name: SKIP PLUMMER Department: Room: 430 P Gender: M Pet Feeder: DORINA : 1950 Requested By: Pipe Wills Order Number: [id number] MD: Cody El Measurements Intervals [place] Rate: 74 P: 2 RI: 156 QRS: -21 QRSD: 141 T: -3 QT: 411 QTc: 456 Interpretive Statements Sinus rhythm RBBB Compared to ECG 11/05/2016 12:42:48 No significant changes Electronically Signed On 10-29-2017 7:55:48 CDT by Cody El [email or web address] <ELECTRONICALLY SIGNED> By: Cody El MD, [facility] 10/29/17 0755 15 15 Cody El MD, [facility] /EPI
[2017-10-28 16:46] VITALS: BP 93/56
[~2017-10-28 16:46] MED LIST: ALLOPURINOL 30300 M2 PO; BASLE60 GM TOP; BENADRYL25 MG PO; CAPSAICIN42.5 GM; CETIRIZINE HCL5 MG PO; COL-RITE50 MG PO; COLCHICINE0.6 MG PO; COUGH SYRU100 MG/5 M PO; CYMBALTA30 MG PO; DECONGESTANT NA15 ML NASAL; FISH OIL 1,001000 M2 PO; IMITREX 25 MG T25 MG PO; LIORESAL 10 MG10 MG PO; LYRICA200 MG PO; NORVASC 2.5 MG2.5 M1 PO; PROAIR RESPICL90 MCG INH; REMERON 30 MG T30 M1 PO; TAMSULOSIN HCL0.4 MG PO; TYLENOL325 MG PO; VITAMINC500 PO; VOLTAREN GEL 1100 G2; ZESTRIL40 MG PO
[2017-10-28 17:43] LABS: ABSOLUTE NEUTROPHILS 5.5 thou/uL (1.4-8.2); BASOPHILS 1.4 % (0.0-2.0); EOSINOPHILS 5.2 % (0.0-3.0); HEMATOCRIT 38.1 % (42.0-52.0); LYMPHOCYTES 19.3 % (24.0-44.0); MCH 31.5 pg (26.0-34.0); MCV 92.6 fL (80.0-100.0); PLATELET COUNT 162 thou/uL (150-400); POLYS 66.1 % (36.0-66.0); RBC 4.12 mil/uL (4.50-6.00); RDW 16.8 % (10.5-14.5); WBC 8.3 thou/uL (4.0-11.0)
[2017-10-28 17:48] LABS: ANION GAP 13 mmol/L (7-16); BUN 40 mg/dL (7-18); CALCIUM 8.9 mg/dL (8.5-10.1); CHLORIDE 104 mmol/L (98-107); CO2 24 mmol/L (21-32); CREATININE 4.7 mg/dL (0.7-1.3); GLUCOSE 139 mg/dL (74-106); SODIUM 141 mmol/L (136-145)
[2017-10-28 17:56] LABS: TROPONIN-I < 0.04 ng/mL (<0.06)
[2017-10-28 18:47] LABS: URINE BILIRUBIN 1+ (Negative); URINE BLOOD NEGATIVE (Negative); URINE CLARITY CLEAR; URINE COLOR YELLOW; URINE GLUCOSE-RANDOM* NEGATIVE (Negative); URINE KETONES TRACE (Negative); URINE LEUKOCYTES-REFLEX NEGATIVE (Negative); URINE NITRITE-REFLEX NEGATIVE (Negative); URINE PROTEIN (DIPSTICK) NEGATIVE (Negative); URINE SPECIFIC GRAVITY >= 1.030 (1.005-1.035); URINE UROBILINOGEN 0.2 E.U./dl (0.2-1.0)
[2017-10-28 18:50] LABS: ICTOTEST (BILI CONFIRMATORY) Negative (Negative)
[2017-10-28 18:58] LABS: AMP/METHAMP Negative (Negative); BARBITURATES Negative (Negative); BENZODIAZEPINES Negative (Negative); COCAINE Negative (Negative); METHADONE Negative (Negative); OPIATES Negative (Negative); PCP Negative (Negative)
[2017-10-28 21:26] VITALS: BP 110/67
[2017-10-28 21:51] VITALS: BP 113/52
[2017-10-28 22:00] VITALS: BP 118/69
[2017-10-29 03:50] VITALS: BP 138/81
[2017-10-29 05:55] LABS: HEMOGLOBIN 12.3 gm/dL (14.0-18.0); MCH 31.4 pg (26.0-34.0); MCHC 33.1 g/dL (28.0-37.0); RBC 3.9 mil/uL (4.50-6.00); RDW 17.1 % (10.5-14.5); WBC 6.9 thou/uL (4.0-11.0)
[2017-10-29 06:12] LABS: CALCIUM 8.4 mg/dL (8.5-10.1)
[2017-10-29 06:13] LABS: CREATININE 2.7 mg/dL (0.7-1.3)
[2017-10-29 10:32] VITALS: BP 143/80
[2017-10-29 20:41] VITALS: BP 172/84
[2017-10-30 05:28] VITALS: BP 158/81
[2017-10-30 07:10] VITALS: BP 156/80
[2017-10-30 11:37] LABS: CALCIUM 8.4 mg/dL (8.5-10.1); CREATININE 1.3 mg/dL (0.7-1.3)
[2017-10-30] MEDS ORDERED: METOPROLOL SUCC50 MG PO (13:00)
[2017-10-30 14:01] VITALS: BP 156/80
== END 2017-10-30 15:13 | disposition home or self-care (01) | DRG 695 ==
LOC: ER 16:46 → EROBS 20:49 → 4E 20:49 → SICU 10-29 10:32 → ENTRNSPT 10-30 14:57 → EDTRNSPTSTS 10-30 15:01 → SICU 10-30 15:13
PROVIDERS: Emergency Medicine; Hospitalist; Nurse Practitioner Family
DX: R33.9 Retention of urine, unspecified (principal); N17.0 Acute kidney failure with tubular necrosis; I10 Essential (primary) hypertension; I25.10 Atherosclerotic heart disease of native coronary artery without angina pectoris; N40.0 Benign prostatic hyperplasia without lower urinary tract symptoms; M19.90 Unspecified osteoarthritis, unspecified site; F12.90 Cannabis use, unspecified, uncomplicated; G89.29 Other chronic pain; G62.9 Polyneuropathy, unspecified; M79.7 Fibromyalgia; Z79.899 Other long term (current) drug therapy; Z88.1 Allergy status to other antibiotic agents; Z88.2 Allergy status to sulfonamides; Z88.8 Allergy status to other drugs, medicaments and biological substances; I25.2 Old myocardial infarction; Z95.1 Presence of aortocoronary bypass graft
CPT/HCPCS: 10084; 15002

== ENCOUNTER 2017-11-21 05:52 | Inpatient (IN) | payer OTHER ==
[~2017-11-21] VITALS: Ht 162.6 cm; Wt 80.7 kg
--- NOTE | ~2017-11-21 | HC ---
[facility] [place] [address] CONSULTATION Name: SKIP PLUMMER Room #: 419-P ADM IN M.R.#: [id number] Admission: 11/21/17 Attend Phys: Ernesto Lozano MD Discharge: Date of : 48 Report #: [id number] THIS REPORT FOR: //name// CC: FAM unknown Ernesto Lozano DATE OF SERVICE: 11/21/2017 REASON FOR CONSULTATION: Acute kidney injury. HISTORY OF PRESENT ILLNESS: This is a 67-year-old male who presented to the Emergency Room earlier today after having had a fall. He is weak. He states he has fallen multiple times. He has had more pain with his falls. He says he fell 3 times yesterday. He is lightheaded and dizzy at home. He has not been found to be hypotensive during the hospitalization, but there is concern of hypotension at home. Upon being seen in the Emergency Room, he was found to have an elevated creatinine level of 5.8 with a BUN of 63. For that, he is admitted to the hospital. In talking to the patient, he states he was just in the hospital a few weeks ago. In fact, he was in the hospital from October 28 through the of this year. At that time, he presented with creatinine level of 4.7. He was found to have urine retention. He was on Flomax. He had a Cintron catheter in for time. Creatinine improved to 1.3 and he was sent home. He states he is still having trouble voiding urine. Says he has not voided urine since yesterday, does not much in the way of symptoms of urine retention, though. He had an ultrasound done earlier, which showed only scant amounts of urine present. He has some mildly elevated creatinine levels previously running about 1.4-1.5 a year ago. His kidneys have been imaged and they really do not show anything in the way of hydronephrosis, nephrolithiasis or dramatic changes. In talking to the patient, intake of food and fluids has been maybe less than usual. Again, he has been lightheaded and dizzy, he has had multiple falls. He also has been taking ibuprofen. He gets prescription strength ibuprofen from the [place] and he does not remember if it is 600 or 800 mg size. Nevertheless, he takes three of those in the morning, sometimes two of those midday and three again in the evening, so he is totaling massive amounts of ibuprofen. He denies any use of naproxen or any other nonsteroidals [id number]. I cannot find if he has received other nephrotoxic exposures. PAST MEDICAL HISTORY: Chronic pain that has been well documented, urine retention in the past. Also, had an extensive abdominal surgery for diverticulitis, long-term antibiotics after that and that was a number of years ago. Also, prior coronary artery disease. MEDICATIONS: It appears he has been taking some Cymbalta 90 mg daily, Remeron 30 mg at bedtime, Lyrica 200 mg b.i.d., allopurinol 150 mg daily, amlodipine 2.5 mg daily, baclofen 20 mg b.i.d., Zyrtec, p.r.n. colchicine and the extensive [facility] [address] [place] [address] CONSULTATION Name: SKIP PLUMMER Room #: 419-P [facility] IN M.R.#: [id number] Admission: 11/21/17 Attend Phys: Ernesto Lozano MD Discharge: Date of : 46 Report #: [id number] amounts of ibuprofen as noted above. Also, apparently some metoprolol 50 mg daily. ALLERGIES: AMOXICILLIN, ATORVASTATIN, CIPROFLOXACIN, PRAVASTATIN, ROSUVASTATIN, AND SULFA. FAMILY HISTORY: Mother had renal failure at the time of her that sounds like this was an acute illness with sepsis. Father of a cancer. No known renal disease in the family, otherwise. SOCIAL HISTORY: The patient is a , lives in [place], [place]. He is retired. 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 Readily, admits to smoking marijuana on a daily basis. REVIEW OF SYSTEMS: Chronic pain. Has extensive peripheral neuropathy. Has been weak and has been falling, has lightheadedness and dizziness. Also, has a twitching component to his hands and feet, which he says has been going on for a long period of time. Appetite has been down. Denies nausea or vomiting. No dyspnea or cough. Has a very large ventral hernia, which he says is just annoying more than anything else. No peripheral edema. Again, states he has not been passing much in the way of urine. Unaware of fevers, chills and sweats. PHYSICAL EXAMINATION: GENERAL: Pleasant, animated 67-year-old male in no acute distress at this time. VITAL SIGNS: Blood pressure 148/65, heart rate 78, temperature 97.5 degrees Fahrenheit, oxygen saturation 97%. HEENT: Shows pupils are 3 mm and reactive. Sclerae nonicteric. Oral mucosa is moist. NECK: Veins are not distended. Neck is supple. CHEST: Clear bilaterally. HEART: Has a regular rate and rhythm. ABDOMEN: Shows a very pronounced right upper quadrant ventral hernia likely 20 or 25 cm in diameter. It is reducible and is nontender. Bowel sounds are present. Otherwise, no other organomegaly or masses. Bladder is not enlarged per percussion or palpation. EXTREMITIES: He has no peripheral edema. He has 2+ peripheral pulses. No rashes. LABORATORY DATA: I reviewed his ultrasound done earlier today and there is no hydronephrosis and kidneys are mildly small may be somewhat dense, but otherwise are fairly unremarkable. LABORATORY DATA: Sodium 137, potassium 4.4, chloride 100, bicarbonate 23, BUN 63, creatinine 5.8, glucose 98, calcium 9.2. White count 9.2, hemoglobin 13.3, hematocrit 38.7, platelets 155,000. Differential on the white count [address] [address] CONSULTATION Name: SKIP PLUMMER Room #: 419-P ADM IN M.R.#: [id number] Admission: 11/21/17 Attend Phys: Ernesto Lozano MD Discharge: Date of : 46 Report #: [id number] neutrophils, 12 lymphs, 10 monos, 1 eosinophil. No urinalysis was done quite remarkably. ASSESSMENT: 1. Acute kidney injury. This is the second episode over the past month. On the surface, the biggest concern is urinary obstruction, but he was not that obstructed on his renal ultrasound, even though he still is having symptoms of urine retention. He has been on the Flomax. We will get a Cintron in him, nevertheless, to watch urine output. Several other concerns are present. He has been taking massive amounts of ibuprofen, so I think this is likely the cause. He is now off of that obviously. If this is all due to that, we will give him some IV fluids, watch his urine output and should slowly improve. He does not have substantial eosinophilia, so I doubt he has an interstitial nephritis component to that. The other concern is that he has had multiple falls. He is not hypotensive and he does not appear shocky. He is sore and we need to check a CPK as he could certainly have some rhabdomyolysis. His potassium is not elevated and his other labs do not look like rhabdomyolysis, but we need to verify. We certainly need to get a urine study to see what his urine looks like. Again, I think the ibuprofen is the most likely etiology. 2. Multiple falls, etiology undetermined. Again, we need to check a CPK. 3. Urine retention back on Flomax. Again, we will put a Cintron in for a day or two. PLAN: 1. Get a Cintron catheter placed. 2. Check urinalysis as well as fractional excretion of sodium. 3. Check a stat CPK in his blood. 4. IV fluids, normal saline 125 mL per hour. If CPK is up, we will increase that rate. 5. Follow up labs in the morning. 6. Anticipate he will show some improvement, but it may take some period of time as he has had a couple of episodes of this recently. We will follow along the care of this patient. <ELECTRONICALLY SIGNED> By: Checo Norris MD 11/22/17 1117 1642 [id number] Checo Norris MD /nt
--- NOTE | ~2017-11-21 | EKG ---
[address] [address] ELECTROCARDIOGRAM REPORT Name: SKIP PLUMMER Room #: 419-P ADM IN M.R.#: [id number] Admission: 11/21/17 Attend Phys: Ernesto Lozano MD Discharge: Date of : 46 Report #: [id number] THIS REPORT FOR: //name// [facility] Test Date: 2017-11-21 Test Time: 08:15:20 Pat Name: SKIP PLUMMER Department: Room: Gender: M Ball Thread Machine Tender: maximino : 1950 Requested By: Chico Murillo Order Number: [id number] MD: Malcolm Bardales Measurements Intervals [place] Rate: 56 P: 35 MS: 165 QRS: -16 QRSD: 146 T: -9 QT: 465 QTc: 449 Interpretive Statements Sinus rhythm Nonspecific intraventricular conduction delay Minimal ST depression, inferior leads Compared to ECG 10/28/2017 17:16:59 Intraventricular conduction delay now present ST (T wave) deviation now present Right bundle-branch block no longer present Electronically Signed On 11-21-2017 12:40:47 CDT by Malcolm Bardales [email or web address] <ELECTRONICALLY SIGNED> By: Malcolm Bardales MD 11/21/17 1240 4 4 Malcolm Bardales MD /EPI
[~2017-11-21 05:52] MED LIST changes: +METOPROLOL SUCC50 MG PO
[2017-11-21 05:53] VITALS: BP 129/71
[2017-11-21 07:50] LABS: CALCIUM 9.2 mg/dL (8.5-10.1); CREATININE 5.8 mg/dL (0.7-1.3); POTASSIUM 4.4 mmol/L (3.5-5.1)
[2017-11-21 07:57] LABS: ABSOLUTE NEUTROPHILS 6.9 thou/uL (1.4-8.2); BASOPHILS 1.3 % (0.0-2.0); EOSINOPHILS 1.1 % (0.0-3.0); HEMATOCRIT 38.7 % (42.0-52.0); HEMOGLOBIN 13.3 gm/dL (14.0-18.0); LYMPHOCYTES 12.5 % (24.0-44.0); MCH 31.6 pg (26.0-34.0); MCHC 34.3 g/dL (28.0-37.0); MONOCYTES 9.8 % (1.0-8.0); PLATELET COUNT 155 thou/uL (150-400); POLYS 75.3 % (36.0-66.0); RDW 16.1 % (10.5-14.5); WBC 9.2 thou/uL (4.0-11.0)
[2017-11-21 09:41] VITALS: BP 129/71
[2017-11-21 10:55] VITALS: BP 129/71
[2017-11-21 11:19] VITALS: BP 148/65
[2017-11-21 17:12] VITALS: BP 120/91
[2017-11-21 17:27] LABS: URINE BLOOD TRACE (Negative); URINE CLARITY CLEAR; URINE COLOR YELLOW; URINE GLUCOSE-RANDOM* NEGATIVE (Negative); URINE KETONES TRACE (Negative); URINE LEUKOCYTES-REFLEX NEGATIVE (Negative); URINE NITRITE-REFLEX NEGATIVE (Negative); URINE PROTEIN (DIPSTICK) TRACE (Negative); URINE SPECIFIC GRAVITY >= 1.030 (1.005-1.035); URINE UROBILINOGEN 0.2 E.U./dl (0.2-1.0)
[2017-11-21 17:33] LABS: AMP/METHAMP Negative (Negative); BARBITURATES Negative (Negative); BENZODIAZEPINES Negative (Negative); COCAINE Negative (Negative); METHADONE Negative (Negative); OPIATES Negative (Negative); PCP Negative (Negative)
[2017-11-21 17:44] LABS: URINE BILIRUBIN NEGATIVE (Negative)
[2017-11-22 04:00] VITALS: BP 170/81
[2017-11-22 05:41] LABS: HEMATOCRIT 37.1 % (42.0-52.0); HEMOGLOBIN 12.5 gm/dL (14.0-18.0); MCH 31.4 pg (26.0-34.0); MCHC 33.8 g/dL (28.0-37.0); RBC 3.99 mil/uL (4.50-6.00); RDW 15.9 % (10.5-14.5); WBC 6.8 thou/uL (4.0-11.0)
[2017-11-22 05:50] LABS: CALCIUM 8.4 mg/dL (8.5-10.1); MAGNESIUM 1.5 mg/dL (1.8-2.4); POTASSIUM 4.1 mmol/L (3.5-5.1)
[2017-11-22 05:56] LABS: CREATININE 2.4 mg/dL (0.7-1.3)
[2017-11-22 07:08] VITALS: BP 150/71
[2017-11-22 15:30] VITALS: BP 161/69
[2017-11-22 19:50] VITALS: BP 166/83
[2017-11-23 04:40] VITALS: BP 166/74
[2017-11-23 07:31] LABS: HEMATOCRIT 37.2 % (42.0-52.0); HEMOGLOBIN 12.4 gm/dL (14.0-18.0); MCH 31.3 pg (26.0-34.0); MCHC 33.4 g/dL (28.0-37.0); MCV 93.5 fL (80.0-100.0); RBC 3.98 mil/uL (4.50-6.00); RDW 15.9 % (10.5-14.5); WBC 6.2 thou/uL (4.0-11.0)
[2017-11-23 07:43] LABS: CALCIUM 8.8 mg/dL (8.5-10.1); MAGNESIUM 1.2 mg/dL (1.8-2.4); POTASSIUM 4.5 mmol/L (3.5-5.1)
[2017-11-23 07:44] LABS: CREATININE 1.3 mg/dL (0.7-1.3)
[2017-11-23 08:10] VITALS: BP 170/76
[2017-11-23 16:20] VITALS: BP 191/80
[2017-11-23 19:20] VITALS: BP 179/86
[2017-11-23 23:18] VITALS: BP 177/87
[2017-11-24 04:20] VITALS: BP 162/92
[2017-11-24 05:17] VITALS: BP 157/73
[2017-11-24 06:18] LABS: HEMATOCRIT 40.6 % (42.0-52.0); HEMOGLOBIN 13.7 gm/dL (14.0-18.0); MCH 31.4 pg (26.0-34.0); MCHC 33.7 g/dL (28.0-37.0); MCV 93.1 fL (80.0-100.0); RBC 4.36 mil/uL (4.50-6.00); RDW 15.6 % (10.5-14.5); WBC 8.3 thou/uL (4.0-11.0)
[2017-11-24 06:25] LABS: CALCIUM 9.9 mg/dL (8.5-10.1); CREATININE 1.1 mg/dL (0.7-1.3); MAGNESIUM 1.4 mg/dL (1.8-2.4); POTASSIUM 3.7 mmol/L (3.5-5.1)
[2017-11-24 07:15] VITALS: BP 159/82
[2017-11-24] MEDS ORDERED: PRINIVIL20 M1 PO (11:45)
[2017-11-24 13:54] VITALS: BP 174/86
== END 2017-11-24 14:50 | disposition home or self-care (01) | DRG 682 ==
LOC: ER 05:52 → EROBS 08:23 → 4E 08:23 → ENTRNSPT 11-24 14:23 → EDTRNSPTSTS 11-24 14:32 → 4E 11-24 14:50
PROVIDERS: Emergency Medicine; Internal Medicine
DX: N17.0 Acute kidney failure with tubular necrosis (principal); E43 Unspecified severe protein-calorie malnutrition; R29.6 Repeated falls; I10 Essential (primary) hypertension; N40.0 Benign prostatic hyperplasia without lower urinary tract symptoms; M19.90 Unspecified osteoarthritis, unspecified site; F12.90 Cannabis use, unspecified, uncomplicated; R33.9 Retention of urine, unspecified; R10.819 Abdominal tenderness, unspecified site; J30.2 Other seasonal allergic rhinitis; G89.29 Other chronic pain; K43.9 Ventral hernia without obstruction or gangrene; E86.0 Dehydration; I25.10 Atherosclerotic heart disease of native coronary artery without angina pectoris; I25.2 Old myocardial infarction; Z95.1 Presence of aortocoronary bypass graft; Z88.1 Allergy status to other antibiotic agents; Z88.2 Allergy status to sulfonamides; Z88.8 Allergy status to other drugs, medicaments and biological substances; Z84.1 Family history of disorders of kidney and ureter; Z83.1 Family history of other infectious and parasitic diseases; Z87.891 Personal history of nicotine dependence; Z79.899 Other long term (current) drug therapy
CPT/HCPCS: 10084

== ENCOUNTER 2018-07-20 09:47 | Inpatient (IN) | payer OTHER ==
[2018-07-20] VITALS (7 sets, daily range): BP systolic 99–156; BP diastolic 45–91
[~2018-07-20] VITALS: Ht 162.6 cm; Wt 84.7 kg
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
[~2018-07-20 09:47] MED LIST changes: +PRINIVIL20 M1 PO
[2018-07-20 10:39] LABS: ABSOLUTE NEUTROPHILS 6.8 thou/uL (1.4-8.2); EOSINOPHILS 3.2 % (0.0-3.0); HEMATOCRIT 34.7 % (42.0-52.0); HEMOGLOBIN 11.7 gm/dL (14.0-18.0); LYMPHOCYTES 16.1 % (24.0-44.0); MCH 31.9 pg (26.0-34.0); MCHC 33.7 g/dL (28.0-37.0); MCV 94.5 fL (80.0-100.0); MONOCYTES 7.7 % (1.0-8.0); RBC 3.67 mil/uL (4.50-6.00); RDW 15.5 % (10.5-14.5); WBC 9.4 thou/uL (4.0-11.0)
[2018-07-20 10:41] LABS: ANION GAP 12 mmol/L (7-16); BUN 50 mg/dL (7-18); CALCIUM 7.7 mg/dL (8.5-10.1); CHLORIDE 106 mmol/L (98-107); CO2 22 mmol/L (21-32); CREATININE 2.3 mg/dL (0.7-1.3); GLUCOSE 85 mg/dL (74-106); POTASSIUM 4.6 mmol/L (3.5-5.1); SODIUM 140 mmol/L (136-145)
[2018-07-20 10:49] LABS: ALBUMIN 3.5 g/dL (3.4-5.0); MAGNESIUM 1.1 mg/dL (1.8-2.4); SGOT 21 U/L (15-37); SGPT 25 U/L (30-65); TOTAL BILIRUBIN 0.2 mg/dL (<0.1-1.0); TOTAL PROTEIN 6.9 g/dL (6.4-8.2); TROPONIN-I <0.06 ng/mL (<0.06)
[2018-07-20 10:52] LABS: APTT 26.8 Seconds (24.5-32.8); PROTIME 9.9 Seconds (9.3-11.4)
[2018-07-20 11:03] LABS: PLATELET COUNT 196 thou/uL (150-400)
[2018-07-20 11:53] LABS: ICTOTEST (BILI CONFIRMATORY) Negative (Negative); URINE BILIRUBIN NEGATIVE (Negative); URINE BLOOD NEGATIVE (Negative); URINE CLARITY CLEAR; URINE COLOR YELLOW; URINE GLUCOSE-RANDOM* NEGATIVE (Negative); URINE KETONES NEGATIVE (Negative); URINE LEUKOCYTES-REFLEX NEGATIVE (Negative); URINE NITRITE-REFLEX NEGATIVE (Negative); URINE PROTEIN (DIPSTICK) NEGATIVE (Negative); URINE UROBILINOGEN 0.2 E.U./dl (0.2-1.0)
[2018-07-20 11:57] LABS: AMP/METHAMP Negative (Negative); BARBITURATES Negative (Negative); BENZODIAZEPINES Negative (Negative); COCAINE Negative (Negative); METHADONE Negative (Negative); OPIATES Negative (Negative); PCP Negative (Negative)
--- NOTE | 2018-07-20 13:39 | EKG ---
[address] [address] ELECTROCARDIOGRAM REPORT Name: PLUMMER,SKIP Tr Room #: 218-P ADM IN M.R.#: [id number] Admission: 07/20/18 Attend Phys: Ernesto Lozano MD Discharge: Date of : 46 Report #: [id number] THIS REPORT FOR: //name// [facility] ED Test Date: 2018-07-20 Test Time: 10:51:14 Pat Name: SKIP PLUMMER Department: Room: 218 Gender: M Horn Player: SEVERIANO : 1950 Requested By: Lopez Poe Order Number: [id number] MD: Malcolm Bardales Measurements Intervals [place] Rate: 60 P: 39 NM: 163 QRS: -13 QRSD: 142 T: -5 QT: 442 QTc: 442 Interpretive Statements Sinus rhythm Right bundle branch block Compared to ECG 11/21/2017 08:15:20 Right bundle-branch block now present Intraventricular conduction delay no longer present ST (T wave) deviation no longer present Electronically Signed On 07-20-2018 13:39:09 POWER TRANSFORMER INSPECTOR by Malcolm Bardales [email or web address] <ELECTRONICALLY SIGNED> By: Malcolm Bardales MD 07/20/18 1339 1051 1051 Malcolm Bardales MD /EPI
[2018-07-20 16:04] LABS: CALCIUM 7.7 mg/dL (8.5-10.1); CREATININE 2.3 mg/dL (0.7-1.3)
--- NOTE | 2018-07-20 18:02 | NUR ---
PT ARRIVED FROM ED TO CCU. PLACED ON MONITOR. START IVF AND MAG REPLACEMENT. NEURO CONSULT, ORDERS PLACED. US CAROTID TODAY, MRI/MRA TOMORROW. PT C/O GENERALIZED PAIN. GLASSES ARE MISSING, CALLED ED TO FIND THEM, UNABLE TO GET AHOLD OF ED.
--- NOTE | 2018-07-21 03:11 | NUR ---
ASSESSMENT DOCUMENTED.PT BEEN RESTING IN NO ACUTE DISTRESS.A/OX4.VSS.RA W/O RESP DISTRESS.PT C/O GENERALIZED PAIN THAT WAS CONTROLLED WITH PAIN MEDS.DENIES ANY OTHER NEEDS.WILL CONT TO MONITOR PER POC.
[2018-07-21 03:28] VITALS: BP 151/66
[2018-07-21 04:25] LABS: ABSOLUTE NEUTROPHILS 4.4 thou/uL (1.4-8.2); BASOPHILS 1.4 % (0.0-2.0); EOSINOPHILS 4.6 % (0.0-3.0); HEMOGLOBIN 11.7 gm/dL (14.0-18.0); MCH 31.9 pg (26.0-34.0); MCHC 33.6 g/dL (28.0-37.0); MONOCYTES 8.3 % (1.0-8.0); PLATELET COUNT 183 thou/uL (150-400); POLYS 60.7 % (36.0-66.0); RBC 3.68 mil/uL (4.50-6.00); RDW 14.8 % (10.5-14.5); WBC 7.3 thou/uL (4.0-11.0)
[2018-07-21 04:35] LABS: CALCIUM 8.1 mg/dL (8.5-10.1); CREATININE 1.4 mg/dL (0.7-1.3); MAGNESIUM 1.8 mg/dL (1.8-2.4); POTASSIUM 4.4 mmol/L (3.5-5.1)
[2018-07-21 07:10] VITALS: BP 161/64
[2018-07-21] MEDS ORDERED: TYLENOL EXTRA500 MG PO (09:19)
[2018-07-21] MEDS ORDERED: ZYLOPRIM300 MG PO (09:20)
[2018-07-21] MEDS ORDERED: PROAIR HFA8.5 GM INH (09:20)
[2018-07-21] MEDS ORDERED: LIORESAL 10 MG10 MG PO (09:21)
[2018-07-21] MEDS ORDERED: ASPIRIN81 M2 PO (09:21)
[2018-07-21] MEDS ORDERED: BUSPIRONE HCL15 MG PO (09:22)
[2018-07-21] MEDS ORDERED: THERA TEARS15 ML OPHTHALMIC (09:23)
[2018-07-21] MEDS ORDERED: ZYRTEC10 M2 PO (09:23)
[2018-07-21] MEDS ORDERED: BENADRYL25 MG PO (09:25)
[2018-07-21] MEDS ORDERED: COLCHICINE0.6 MG PO (09:25)
[2018-07-21] MEDS ORDERED: VITAMIN D1000 UNI1 PO (09:25)
[2018-07-21] MEDS ORDERED: SENOKOT-S1 TA2 PO (09:26)
[2018-07-21] MEDS ORDERED: LEXAPRO20 MG PO (09:26)
[2018-07-21] MEDS ORDERED: FOLIC ACID1 MG PO (09:27)
[2018-07-21] MEDS ORDERED: PROSCAR 5MG TABL5 MG PO (09:27)
[2018-07-21] MEDS ORDERED: GEMFIBROZIL 60600 M1 PO (09:27)
[2018-07-21] MEDS ORDERED: FISH OIL 1,001000 M2 PO (09:27)
[2018-07-21] MEDS ORDERED: LIDODERM1 EACH TRANSDERM (09:28)
[2018-07-21] MEDS ORDERED: MELATONIN3 MG PO (09:29)
[2018-07-21] MEDS ORDERED: LISINOPRIL40 MG PO (09:29)
[2018-07-21] MEDS ORDERED: TOPROL XL100 MG PO (09:30)
[2018-07-21] MEDS ORDERED: MIRTAZAPINE45 MG PO (09:30)
[2018-07-21] MEDS ORDERED: PAMELOR10 MG PO (09:31)
[2018-07-21] MEDS ORDERED: PRILOSEC 20 MG20 MG PO (09:31)
[2018-07-21] MEDS ORDERED: IMITREX 25 MG T25 M1 PO (09:32)
[2018-07-21] MEDS ORDERED: TRAZODONE HCL50 MG PO (09:32)
[2018-07-21] MEDS ORDERED: FLOMAX0.4 MG PO (09:32)
[2018-07-21] MEDS ORDERED: LYRICA200 MG PO (09:49)
[2018-07-21 11:26] VITALS: BP 139/77
[2018-07-21 15:02] VITALS: BP 169/65
[2018-07-21 15:27] LABS: CHOLESTEROL 238 mg/dL (<200); HDL CHOLESTEROL 37 mg/dL (>40); LDL CHOLESTEROL 148 mg/dL (<100); TC:HDL 6.4 Ratio (Not establshd); TRIGLYCERIDE 267 mg/dL (<150); VLDL 53 mg/dL (<40)
[2018-07-21 15:28] LABS: SERUM ASSESSMENT Clear
--- NOTE | 2018-07-21 15:58 | NUR ---
met with patient, he resides at home with son. 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 he cont to drive. All needs on one level in home. He uses a cane and has a walker if needed. He usu goes to [place] and was there inpatient last week and dc fri. He reports he DOES NOT want HH ordered. He does not want people in his home. He gets his scripts from [place]. Therapy evals in process casemgt following
--- NOTE | 2018-07-21 16:28 | 2DMMODE ---
[facility] [address] [place] [address] 2 D/M-MODE ECHOCARDIOGRAM Name: KAVITHASKIP Tr Room #: 218-P [facility] IN .R.#: [id number] Admission: 07/20/18 Attend Phys: Ernesto Lozano, Discharge: Date of : 46 Date of Service: 07/21/18 1627 Report #: [id number] THIS REPORT FOR: //name// APPROVED REPORT Study performed: 07/21/2018 15:25:03 EXAM: Comprehensive 2D, Doppler, and color-flow Echocardiogram Patient Location: Echo lab Room #: 218 Status: routine BSA: 1.88 HR: 76 bpm BP: 169/65 mmHg Rhythm: NSR Other Information Study Quality: Adequate Indications Vertigo. Hx: IL, CABG 2D Dimensions RVDd: 31.33 mm IVSd: 10.60 (7-11mm) LVOT Diam: 21.88 (18-24mm) LVDd: 42.19 mm PWd: 11.45 (7-11mm) Ascending Ao: 33.26 (22-36mm) LVDs: 25.46 (25-40mm) Aortic Root: 35.66 mm Volumes Left Atrial Volume (Systole) Single Plane 4CH: 34.02 mL Single Plane 2CH: 30.88 mL LA ESV Index: 19.00 mL/m2 Aortic Valve AoV Peak Tony.: 2.12 m/s AO Peak Gr.: 17.92 mmHg LVOT Max P.76 mmHg AO Mean Gr.: 11.31 mmHg AO V2 Mean: 1.64 m/s LVOT Max V: 1.09 m/s AO V2 VTI: 41.60 cm JULIO Vmax: 1.94 cm2 Mitral Valve E/A Ratio: 0.8 [facility] [place] [address] 2 D/M-MODE ECHOCARDIOGRAM Name: SKIP PLUMMER Room #: 218-P [facility] IN .R.#: [id number] Admission: 07/20/18 Attend Phys: Ernesto Lozano, Discharge: Date of : 46 Date of Service: 07/21/18 1627 Report #: [id number] MV Decel. Time: 250.11 ms MV E Max Tony.: 0.77 m/s MV A Tony.: 1.01 m/s MV PHT: 72.53 ms IVRT: 92.27 ms Pulmonary Valve PV Peak Tony.: 1.11 m/s PV Peak Gr.: 4.94 mmHg Pulmonary Vein P Vein S: 1.06 m/s P Vein D: 0.74 m/s P Vein S/D Ratio: 1.43 Tricuspid Valve TR Peak Tony.: 2.31 m/s RAP Estimate: 5.00 mmHg TR Peak Gr.: 21.31 mmHg PA Pressure: 26.00 mmHg Left Ventricle The left ventricle is normal size. There is normal LV segmental wall motion. There is normal left ventricular wall thickness. Left ventricular systolic function is normal. LVEF is 60-65%. Mild diastolic dysfunction is present (impaired relaxation pattern). Right Ventricle The right ventricle is normal size. The right ventricular systolic function is normal. Atria The left atrium size is normal. The right atrium size is normal. Aortic Valve The Aortic valve is moderately sclerotic but has adequate excursion. No aortic regurgitation is present. No hemodynamically significant valvular aortic stenosis. Mitral Valve The mitral valve is normal in structure. Trace mitral regurgitation. Tricuspid Valve The tricuspid valve is normal in structure. Trace tricuspid regurgitation. Estimated PAP is 25-30mmHg. [address] [address] 2 D/M-MODE ECHOCARDIOGRAM Name: SKIP PLUMMER Room #: 218-P [facility] IN .R.#: [id number] Admission: 07/20/18 Attend Phys: Ernesto Lozano, Discharge: Date of : 46 Date of Service: 07/21/18 1627 Report #: [id number] Pulmonic Valve The pulmonary valve is normal in structure. Trace pulmonic regurgitation. Great Vessels The aortic root is normal in size. The ascending aorta is normal in size. IVC is normal in size and collapses >50% with inspiration. Pericardium There is no pericardial effusion. <Conclusion> The left ventricle is normal size. LVEF is 60-65%. The Aortic valve is moderately sclerotic but has adequate excursion. No aortic regurgitation is present. No hemodynamically significant valvular aortic stenosis. The mitral valve is normal in structure. Trace mitral regurgitation. The tricuspid valve is normal in structure. Trace tricuspid regurgitation. Estimated PAP is 25-30mmHg. The pulmonary valve is normal in structure. Trace pulmonic regurgitation. There is no pericardial effusion. <ELECTRONICALLY SIGNED> By: Codey Juarez MD 07/21/18 1627 1627 162 Codey Juarez MD /INF
--- NOTE | 2018-07-21 16:59 | NUR ---
PT CARE ASSUMED APPROX 0700. PT ALERT AND ORIENTED X4 WITH MILD FORGETFULNESS. DENIES SOA AND DIZZINESS. C/O GENERALIZED PAIN. REPORTS RELIEF WITH FENTANYL. VSS. ECHO COMPLETED THIS SHIFT. CTA HEAD AND NECK ORDERED FOR TOMORROW. IVF RUNNING. PT DENIES QUESTIONS/CONCERNS REGARDING POC. NO DISTRESS NOTED.
[2018-07-21 19:15] VITALS: BP 144/76
--- NOTE | 2018-07-21 21:55 | NUR ---
1900 PT LAYING IN BED IN NAD. DENIES NEEDS AND STATES NO COMPLAINTS.
[2018-07-22 04:45] VITALS: BP 154/79
[2018-07-22 07:54] VITALS: BP 166/92
[2018-07-22 11:01] VITALS: BP 157/89
[2018-07-22] MEDS ORDERED: ANTIVERT25 MG PO (14:51)
[2018-07-22 15:43] VITALS: BP 157/89
--- NOTE | 2018-07-22 16:23 | NUR ---
CARE OF PT ASSUMED APPROX 0700. PT ALERT AND ORIENTED X4 WITH MILD FORGETFULNESS AT TIMES. DENIES PAIN AND SOA. VSS. BP SLIGHLTLY ELEVATED AND DR HOFFMAN NOTIFIED THAT BP MEDS ARE STILL UNORDERED. PT TO DISCHARGE HOME TO SELF CARE THIS SHIFT. BP MEDS ARE IN CONTINUED MED LIST TO RESUME ONCE HOME. DISCHARGE PAPERWORK REVIEWED WITH PT. PT DENIES QUESTIONS OR CONCERNS REGARDING DISCHARGE MEDS, DIET, ACTIVITY LEVEL, F/U APPTS OR POST HOSPITAL CARE. INSTRUCTED TO STAY WELL HYDRATED DUE TO MEDS HE TAKES. IV OUT, TELE BOX OFF. PT'S SON PRESENT TO TRANSPORT PT HOME. HOSPITAL STAFF TO ESCORT PT OUT.
== END 2018-07-22 17:15 | disposition home or self-care (01) | DRG 682 ==
LOC: ER 09:47 → EROBS 11:46 → 2N 11:46
PROVIDERS: Emergency Medicine; Nurse Practitioner; ADMIT Internal Medicine
DX: N17.0 Acute kidney failure with tubular necrosis (principal); G93.41 Metabolic encephalopathy; E83.42 Hypomagnesemia; F12.90 Cannabis use, unspecified, uncomplicated; M79.7 Fibromyalgia; I95.1 Orthostatic hypotension; E83.51 Hypocalcemia; I12.9 Hypertensive chronic kidney disease with stage 1 through stage 4 chronic kidney disease, or unspecified chronic kidney disease; I25.10 Atherosclerotic heart disease of native coronary artery without angina pectoris; R29.6 Repeated falls; F32.9 Major depressive disorder, single episode, unspecified; K21.9 Gastro-esophageal reflux disease without esophagitis; R41.0 Disorientation, unspecified; N18.9 Chronic kidney disease, unspecified; G62.9 Polyneuropathy, unspecified; T44.6X5A Adverse effect of alpha-adrenoreceptor antagonists, initial encounter; T50.995A Adverse effect of other drugs, medicaments and biological substances, initial encounter; T42.8X5A Adverse effect of antiparkinsonism drugs and other central muscle-tone depressants, initial encounter; T42.6X5A Adverse effect of other antiepileptic and sedative-hypnotic drugs, initial encounter; E86.0 Dehydration; M54.31 Sciatica, right side; N40.0 Benign prostatic hyperplasia without lower urinary tract symptoms; H55.00 Unspecified nystagmus; E78.5 Hyperlipidemia, unspecified; M19.90 Unspecified osteoarthritis, unspecified site; K46.9 Unspecified abdominal hernia without obstruction or gangrene; Z88.1 Allergy status to other antibiotic agents; Z88.8 Allergy status to other drugs, medicaments and biological substances; I25.2 Old myocardial infarction; Z95.1 Presence of aortocoronary bypass graft; Z88.2 Allergy status to sulfonamides; Z91.048 Other nonmedicinal substance allergy status; Z86.73 Personal history of transient ischemic attack (TIA), and cerebral infarction without residual deficits; Z87.891 Personal history of nicotine dependence; Y92.89 Other specified places as the place of occurrence of the external cause
CPT/HCPCS: 10081